=== PATIENT | male | born 1970 | race Caucasian/White ===

== ENCOUNTER 2024-06-04 08:16 | Outpatient (CLI) | payer BC ==
[2024-06-04 08:57] LABS: BASOPHILS % (AUTO) 0.3 % (0.0-2.0); EOSINOPHILS # (AUTO) 0.2 K/uL (0.0-0.7); EOSINOPHILS % (AUTO) 2.6 % (0.0-6.0); HEMATOCRIT 44 % (39-51); HEMOGLOBIN 15.2 g/dL (13.5-17.5); LYMPHOCYTES # (AUTO) 1.4 K/uL (0.8-4.8); LYMPHOCYTES % (AUTO) 18.1 % (20.0-44.0); MEAN CORPUSCULAR HEMOGLOBIN 33 PG (26.0-33.0); MEAN CORPUSCULAR HGB CONC 35 g/dl (31.0-36.0); MEAN CORPUSCULAR VOLUME 94 fL (80-96); MONOCYTES # (AUTO) 0.4 K/uL (0.1-1.30); MONOCYTES % (AUTO) 5.6 % (2.0-12.0); NEUTROPHILS # (AUTO) 5.7 K/uL (1.8-8.9); NEUTROPHILS % (AUTO) 73.4 % (43.0-81.0); PLATELET COUNT (AUTO) 203 K/uL (150-450); RED BLOOD CELL COUNT(AUTO) 4.67 MIL/uL (4.5-6.0); RED CELL DISTRIBUTION WIDTH 13.4 % (11.5-15.0); WHITE BLOOD COUNT (AUTO) 7.8 K/uL (4.3-11.0)
[2024-06-04 09:05] LABS: INR 1.08 (0.91-1.10); PARTIAL THROMBOPLASTIN TIME 28.3 SEC (24.3-34.3); PROTHROMBIN TIME 11.4 SECS (9.2-11.1)
[2024-06-04 09:09] LABS: ALBUMIN 3.6 g/dL (3.4-5.0); BILIRUBIN,TOTAL 1.1 mg/dL (0.2-1.0); CALCIUM, SERUM 9.3 mg/dL (8.5-10.1); POTASSIUM 3.9 mmol/L (3.5-5.1); TOTAL PROTEIN, SERUM 8.2 g/dL (6.4-8.2)
[2024-06-04 09:14] LABS: PROSTATE SPECIFIC ANTIGEN SCR 0.45 ng/mL (0.00-4.00)
== END 2024-06-04 23:59 | disposition home or self-care (01) ==
LOC: LAB 08:16
PROVIDERS: ATTEND Internal Medicine Hematology & Oncology
DX: Z12.5 Encounter for screening for malignant neoplasm of prostate (principal); R79.1 Abnormal coagulation profile; D64.9 Anemia, unspecified; R97.0 Elevated carcinoembryonic antigen [CEA]; R74.02 Elevation of levels of lactic acid dehydrogenase [LDH]
CPT/HCPCS: 36415; 80053-TC; 82378; 83615-TC; 84153-TC; 85025-TC; 85610-TC; 85730-TC

== ENCOUNTER 2024-08-03 18:48 | Emergency (ER) | payer BC ==
[~2024-08-03] VITALS: Ht 170.2 cm; Wt 105.7 kg
[2024-08-03] MEDS ORDERED: diphenhydrAMINE HCL 50 MG CAPSULE ONE (19:23)
[2024-08-03] MEDS ORDERED: predniSONE 20 MG TABLET ONE (19:23)
[2024-08-03] MEDS ORDERED: FAMOTIDINE (20 MG) 20 MG TABLET ONE (19:23)
[2024-08-03] MEDS: diphenhydrAMINE HCL 50 MG CAPSULE PO ONE (19:26)
[2024-08-03] MEDS: FAMOTIDINE (20 MG) 20 MG TABLET PO ONE (19:27)
[2024-08-03] MEDS: predniSONE 10 MG TABLET PO ONE (19:28)
[2024-08-03] MEDS ORDERED: DIPH25CA83 PO (20:08)
[2024-08-03] MEDS ORDERED: CETI-194 PO (20:08)
[2024-08-03] MEDS ORDERED: PRED50TA PO (20:08)
[2024-08-03 20:28] VITALS: BP 160/101; TEMP 98.5; O2SAT 98
== END 2024-08-03 20:28 | disposition home or self-care (01) ==
LOC: ER 18:49
DX: T78.40XA Allergy, unspecified, initial encounter (principal); I10 Essential (primary) hypertension; R20.0 Anesthesia of skin; X58.XXXA Exposure to other specified factors, initial encounter
CPT/HCPCS: 99284; Q0163; J7512 ×2

== ENCOUNTER 2024-11-19 08:00 | Outpatient (CLI) | payer BC ==
[~2024-11-19 08:00] MED LIST: CETI-194 PO; DIPH25CA83 PO; PRED50TA PO
[2024-11-19 09:10] LABS: BASOPHILS % (AUTO) 0.3 % (0.0-2.0); EOSINOPHILS # (AUTO) 0.2 K/uL (0.0-0.7); EOSINOPHILS % (AUTO) 2.3 % (0.0-6.0); HEMATOCRIT 47 % (39-51); HEMOGLOBIN 16.3 g/dL (13.5-17.5); LYMPHOCYTES # (AUTO) 1.4 K/uL (0.8-4.8); LYMPHOCYTES % (AUTO) 19.3 % (20.0-44.0); MEAN CORPUSCULAR HEMOGLOBIN 32 PG (26.0-33.0); MEAN CORPUSCULAR HGB CONC 35 g/dl (31.0-36.0); MEAN CORPUSCULAR VOLUME 93 fL (80-96); MONOCYTES # (AUTO) 0.4 K/uL (0.1-1.30); NEUTROPHILS # (AUTO) 5.4 K/uL (1.8-8.9); NEUTROPHILS % (AUTO) 72.1 % (43.0-81.0); PLATELET COUNT (AUTO) 220 K/uL (150-450); RED BLOOD CELL COUNT(AUTO) 5.06 MIL/uL (4.5-6.0); RED CELL DISTRIBUTION WIDTH 13.4 % (11.5-15.0); WHITE BLOOD COUNT (AUTO) 7.4 K/uL (4.3-11.0)
[2024-11-19 09:23] LABS: ALBUMIN 3.9 g/dL (3.4-5.0); BILIRUBIN,TOTAL 1.3 mg/dL (0.2-1.0); CALCIUM, SERUM 9.3 mg/dL (8.5-10.1); CREATININE 1.1 mg/dL (0.6-1.3); POTASSIUM 3.5 mmol/L (3.5-5.1); TOTAL PROTEIN, SERUM 8.4 g/dL (6.4-8.2)
[2024-11-20 08:07] LABS: AFP, TUMOR MARKER 5.4 ng/mL (0.0-8.4); CARCINOEMBRYONIC ANTIGEN (CEA) 1.9 ng/mL (0.0-4.7)
== END 2024-11-19 23:59 | disposition home or self-care (01) ==
LOC: LAB 08:00
PROVIDERS: ATTEND Internal Medicine Hematology & Oncology
DX: D64.9 Anemia, unspecified (principal); Z13.228 Encounter for screening for other metabolic disorders; R97.0 Elevated carcinoembryonic antigen [CEA]; R77.2 Abnormality of alphafetoprotein; R97.8 Other abnormal tumor markers; R74.02 Elevation of levels of lactic acid dehydrogenase [LDH]
CPT/HCPCS: 36415; 80053-TC; 82105; 82378; 83615-TC; 85025-TC; 86301

== ENCOUNTER 2025-05-06 07:40 | Outpatient (CLI) | payer BC ==
[2025-05-06 08:52] LABS: ASPARTATE AMINOTRANSFERASE 51.0 U/L (15-37); CALCIUM, SERUM 8.8 mg/dL (8.5-10.1); CREATININE 1.0 mg/dL (0.6-1.3); SODIUM SERUM 142.0 mmol/L (136-145); TOTAL PROTEIN, SERUM 7.7 g/dL (6.4-8.2); UREA NITROGEN, BLOOD 16.0 mg/dL (7-18)
[2025-05-06 09:07] LABS: RED BLOOD CELL COUNT(AUTO) 4.67 MIL/uL (4.5-6.0); WHITE BLOOD COUNT (AUTO) 5.8 K/uL (4.3-11.0)
[2025-05-06 09:08] LABS: PLATELET COUNT (AUTO) 182 K/uL (150-450); RED CELL DISTRIBUTION WIDTH 13.0 % (11.5-15.0)
[2025-05-07 05:13] LABS: AFP, TUMOR MARKER 4.4 ng/mL (0.0-8.4); CARBOHYDRATE AG 19-9 13.0 U/mL (0-35); CARCINOEMBRYONIC ANTIGEN (CEA) 2.0 ng/mL (0.0-4.7)
== END 2025-05-06 23:59 | disposition home or self-care (01) ==
LOC: LAB 07:40
PROVIDERS: ATTEND Internal Medicine Hematology & Oncology
DX: R22.9 Localized swelling, mass and lump, unspecified (principal)
CPT/HCPCS: 36415; 80053-TC; 82105; 82378; 83615-TC; 85025-TC; 86301